=== PATIENT | female | born 1955 | race Caucasian/White ===

== ENCOUNTER 2016-06-13 11:30 | Outpatient (CLI) | payer MEDICAID | END 2016-06-13 11:31 | disposition home or self-care (01) | DX: R53.83 Other fatigue (principal) ==

== ENCOUNTER 2016-08-08 14:30 | Outpatient (CLI) | payer MEDICAID | END 2016-08-08 23:59 | DX: E03.9 Hypothyroidism, unspecified (principal); R53.83 Other fatigue; Z51.81 Encounter for therapeutic drug level monitoring ==

== ENCOUNTER 2016-09-08 15:55 | Emergency (ER) | payer MEDICAID ==
[2016-09-08] MEDS ORDERED: LIDOCAINE 1% 2 ML VIAL ONE (17:09)
[2016-09-08] MEDS ORDERED: AMOX/CLAV 875 MG/125 MG TABLET PO STA (17:23)
--- NOTE | 2016-09-08 17:25 | ED Physician Documentation ---
PD HPI ANIMAL BITE - Stated complaint Stated Complaint: RT UE DOG BITE - Chief complaint Chief Complaint: Wound - History obtained from History obtained from: Patient, Family - History of Present Illness Location of injury(ies): RUE Details of the event: Dog, Bite, Pet animal, Well appearing, Immunized, Provoked (the patient was playing with the dog and the dog bit her arm going for a ball), Animal can be observed Timing - onset: Today Timing - duration: Hours Timing - details: Abrupt onset, Still present Improved by: Rest, Immobilization Worsened by: Moving, Palpating Associated symptoms: No: Weakness, Numbness, Tingling Contributing factors: Immunocompromised Similar symptoms before: Has not had sx before Recently seen: Not recently seen - Additional information Additional information: 61 y/o female on cosyntex was playing with her dog and was bit by the dog when the dog was going for a ball. Review of Systems Constitutional: denies: Fever Eyes: denies: Decreased vision Respiratory: denies: Cough GI: denies: Vomiting Skin: reports: Laceration (s), Bite / sting Musculoskeletal: reports: Extremity pain. denies: Neck pain, Back pain PD PAST MEDICAL HISTORY - Past Medical History Past Medical History: No Cardiovascular: High cholesterol Respiratory: None Neuro: Other Endocrine/Autoimmune: HyPOthyroidism GI: GERD, Colon polyps, Ulcerative colitis : None HEENT: None Psych: Depression, Anxiety Musculoskeletal: Osteoarthritis, Chronic back pain, Other Derm: None - Past Surgical History Past Surgical History: Yes General: Cholecystectomy Ortho: Other /STRIPPER PRELIMINARY: Hysterectomy HEENT: Tonsil/Adenoidectomy Derm: Other - Present Medications Home Medications: Ambulatory Orders Medication Instructions Recorded Confirmed Loratadine [Claritin] 10 mg PO DAILY 06/24/13 04/28/14 Temazepam 15 mg PO DAILY 06/24/13 04/28/14 predniSONE [Deltasone] 5 mg PO PRN PRN 06/24/13 04/28/14 Naproxen [Naprosyn] 500 mg PO BID PRN #30 tablet 04/28/14 Amox/Clav 875/125 [Augmentin] 1 each PO Q12H #10 tablet 09/08/16 Duloxetine HCl [Duloxetine HCl] 30 mg PO DAILY 09/08/16 09/08/16 Levothyroxine [Synthroid] 50 mcg PO DAILY 09/08/16 09/08/16 Secukinumab [Cosentyx Syringe] 150 mg INJ ONCE 09/08/16 09/08/16 Zolpidem Tartrate [Zolpidem 10 mg PO DAILY 09/08/16 09/08/16 Tartrate] predniSONE [Deltasone] 10 mg PO DAILY PRN 09/08/16 09/08/16 - Allergies Allergies/Adverse Reactions: Allergies Allergy/AdvReac Type Severity Reaction Status Date / Time Sulfa (Sulfonamide Allergy Intermediate Hives Verified 04/28/14 12:10 Antibiotics) - Social History Does the pt smoke?: No Smoking Status: Never smoker Does the pt drink ETOH?: Yes ETOH Use: Wine Does the pt have substance abuse?: No - Immunizations Immunizations are current?: Yes PD ED PE NORMAL - Vitals Vital signs reviewed: Yes (hypertensive ) - General General: No acute distress, Well developed/nourished - HEENT HEENT: Atraumatic, PERRL - Neck Neck: Supple, no meningeal sign - Derm Derm: Normal color, Warm and dry, No rash - Extremities Extremities: No deformity, No edema, Other (There is a 3cm laceration to the right volar forearm without foreign material in the wound. ) - Neuro Neuro: Alert and oriented X 3, No motor deficit, No sensory deficit, Normal speech - Psych Psych: Normal mood, Normal affect Results - Vitals Vitals: Vital Signs - 24 hr 09/08/16 15:58 Temperature 35.3 C L Heart Rate 90 Respiratory 18 Rate Blood Pressure 158/98 H O2 Saturation 97 Oxygen O2 Source Room air Procedures - Laceration (location) right forearm Length in cm: 3 Wound type: Linear, Clean Neurovascular status: Sensory intact, Motor intact, Vascular intact Anesthesia: Lidocaine 1% Wound Preparation: Hibiclens, Irrigated copiously NS, Wound explored, To the base Skin layer closure: Nylon, Size #-0 - enter number (4-0), Sutures - enter # (1) Other: Patient tolerated well, No complications, Neurovascular intact, Dressing applied, Tetanus UTD Complexity: Simple PD MEDICAL DECISION MAKING - ED course Complexity details: reviewed old records, considered differential, d/w patient ED course: 61 y/o female on cosyntx has a 3cm dog bite to the right forearm. She would like some closure and I have discussed partial closure with risk of trapped infection and we have agreed on partial closure with a single suture. Departure - Departure Disposition: 01 Home, Self Care Clinical Impression: Dog bite of extremity Condition: Stable Instructions: ED Bite Animal General Follow-Up: Dayna Dior PA-C [Provider Admit Priv/Credential] - Prescriptions: Amox/Clav 875/125 [Augmentin] 1 each PO Q12H #10 tablet Comments: Today in the Emergency Department your blood pressure was elevated. This can happen from the stress of the visit itself, from a current illness or circumstance or from uncontrolled hypertension. If you take blood pressure medications take your usual mediations, have your blood pressure re-checked in an appropriate setting and follow up any elevation with your primary care doctor.
[2016-09-08] MEDS ORDERED: AMOX/CLAV 875 MG/125 MG TABLET PO ONE (17:33)
[2016-09-08 17:55] VITALS: BP 133/93
== END 2016-09-08 17:52 | disposition home or self-care (01) ==
LOC: ED 15:55
DX: S51.811A Laceration without foreign body of right forearm, initial encounter (principal); W54.0XXA Bitten by dog, initial encounter; E78.00 Pure hypercholesterolemia, unspecified; E03.9 Hypothyroidism, unspecified; K21.9 Gastro-esophageal reflux disease without esophagitis; Z86.010 Personal history of colon polyps; Z87.19 Personal history of other diseases of the digestive system; M19.90 Unspecified osteoarthritis, unspecified site
CPT/HCPCS: 12002; 99283; A9270

== ENCOUNTER 2016-09-10 09:30 | Outpatient (CLI) | payer MEDICAID | END 2016-09-10 09:31 | disposition home or self-care (01) | LOC: LAB.R 09:30 | PROVIDERS: ATTEND Physician Assistant Medical | DX: L03.113 Cellulitis of right upper limb (principal) | CPT/HCPCS: 87070; 87205 ==

== ENCOUNTER 2016-09-12 09:54 | Outpatient (CLI) | payer MEDICAID ==
[2016-09-12 13:33] LABS: THYROID STIMULATING HORMONE 2.26 uIU/mL (0.34-5.60)
[2016-09-20 19:33] LABS: T3 REVERSE 16 ng/dL (8-25)
== END 2016-09-12 09:55 | disposition home or self-care (01) ==
LOC: LAB.WCP 09:54
PROVIDERS: ATTEND Physician Assistant Medical
DX: E03.9 Hypothyroidism, unspecified (principal)
CPT/HCPCS: 36415; 81599; 84439; 84443; 84481; 84482; 86317; 86704; 86803; 87340

== ENCOUNTER 2016-11-06 08:00 | Outpatient (CLI) | payer MEDICAID ==
[2016-11-06 12:55] LABS: ALBUMIN/GLOBULIN RATIO 1.1 (1.0-2.2); BILIRUBIN,TOTAL 0.6 mg/dL (0.2-1.0); BUN - BLOOD UREA NITROGEN 13 mg/dL (6-20); CARBON DIOXIDE - CO2 24 mmol/L (21-32); CHLORIDE 103 mmol/L (101-111); CREATININE 0.8 mg/dL (0.4-1.0); GFR - MDRD 73 (>89); GLUCOSE 97 mg/dL (70-100); POTASSIUM 3.8 mmol/L (3.5-5.0); SODIUM 137 mmol/L (135-145); TOTAL PROTEIN 7.2 g/dL (6.7-8.2)
[2016-11-06 13:11] LABS: HEMOGLOBIN A1C 0.59 g/dL
== END 2016-11-06 08:01 | disposition home or self-care (01) ==
LOC: LAB.WCP 08:00
PROVIDERS: ATTEND Family Medicine
DX: E27.8 Other specified disorders of adrenal gland (principal)
CPT/HCPCS: 36415; 80053; 83036; 84443

== ENCOUNTER 2016-12-24 11:00 | Outpatient (CLI) | payer MEDICAID | END 2016-12-24 11:01 | disposition home or self-care (01) | LOC: LAB.R 11:00 | PROVIDERS: ATTEND Physician Assistant Medical | DX: N39.0 Urinary tract infection, site not specified (principal) | CPT/HCPCS: 87086 ==

== ENCOUNTER 2017-07-01 11:18 | Outpatient (CLI) | payer MEDICAID | END 2017-07-01 11:19 | disposition EMS.NT | LOC: EMS 11:18 | PROVIDERS: ATTEND Surgery | DX: M25.561 Pain in right knee (principal); W10.9XXA Fall (on) (from) unspecified stairs and steps, initial encounter; Y92.009 Unspecified place in unspecified non-institutional (private) residence as the place of occurrence of the external cause ==

== ENCOUNTER 2017-12-30 14:55 | Outpatient (CLI) | payer MEDICAID ==
[2017-12-30 19:01] LABS: BASOPHILS # (AUTO) 0.1 10^3/uL (0.0-0.1); BASOPHILS % (AUTO) 1.5 %; EOSINOPHILS # (AUTO) 0.1 10^3/uL (0.0-0.7); EOSINOPHILS % (AUTO) 2.4 %; HGB - HEMOGLOBIN 13.2 g/dL (12.0-16.0); LYMPHOCYTES # (AUTO) 1.2 10^3/uL (1.5-3.5); LYMPHOCYTES % (AUTO) 19.9 %; MEAN CORPUSCULAR HEMOGLOBIN 28.8 pg (27.0-31.0); MEAN CORPUSCULAR HGB CONC 33.6 g/dL (32.0-36.0); MEAN CORPUSCULAR VOLUME 85.6 fL (81.0-99.0); MONOCYTES # (AUTO) 0.5 10^3/uL (0.0-1.0); MONOCYTES % (AUTO) 7.5 %; NEUTROPHILS # (AUTO) 4.2 10^3/uL (1.5-6.6); NEUTROPHILS % (AUTO) 68.7 %; PLT - PLATELET COUNT 334 10^3/uL (130-450); RED BLOOD COUNT 4.58 10^6/uL (4.20-5.40); RED CELL DISTRIBUTION WIDTH 15.1 % (12.0-15.0); WHITE BLOOD COUNT 6.1 x10^3/uL (4.8-10.8)
[2017-12-30 19:32] LABS: ALBUMIN 4.1 g/dL (3.2-5.5); ALBUMIN/GLOBULIN RATIO 1.2 (1.0-2.2); ALKALINE PHOSPHATASE 83 IU/L (42-121); ALT ALANINE AMINOTRANSFERASE 28 IU/L (10-60); AST ASPARTATE AMINOTRANSFERASE 29 IU/L (10-42); BILIRUBIN,TOTAL 0.6 mg/dL (0.2-1.0); BUN - BLOOD UREA NITROGEN 12 mg/dL (6-20); CALCIUM 9.2 mg/dL (8.5-10.3); CARBON DIOXIDE - CO2 27 mmol/L (21-32); CHLORIDE 102 mmol/L (101-111); CHOL/HDL RATIO 6.5 (<4.4); CHOLESTEROL 294 mg/dL; CREATININE 0.8 mg/dL (0.4-1.0); GFR - MDRD 73 (>89); GLUCOSE 102 mg/dL (70-100); HDL CHOLESTEROL 45 mg/dL; LDL CHOLESTEROL,CALCULATED 205 mg/dL; LDL/HDL RATIO 4.6 (<4.4); SODIUM 139 mmol/L (135-145); TOTAL PROTEIN 7.4 g/dL (6.7-8.2); VLDL CHOLESTEROL 44 mg/dL
[2017-12-30 19:33] LABS: CRP - C-REACTIVE PROTEIN < 1.0 mg/dL (0-1.0)
[2017-12-30 19:41] LABS: THYROID STIMULATING HORMONE 2.22 uIU/mL (0.34-5.60)
== END 2017-12-30 14:56 | disposition home or self-care (01) ==
LOC: LAB.WCP 14:55
PROVIDERS: ATTEND Family Medicine
DX: K76.0 Fatty (change of) liver, not elsewhere classified (principal); E78.5 Hyperlipidemia, unspecified; G31.84 Mild cognitive impairment of uncertain or unknown etiology; E03.9 Hypothyroidism, unspecified; D84.9 Immunodeficiency, unspecified
CPT/HCPCS: 36415; 80053; 80061; 82607; 83721; 84443; 85025; 86140

== ENCOUNTER 2018-03-31 13:02 | Outpatient (CLI) | payer MEDICAID ==
[2018-03-31 20:20] LABS: ALBUMIN 4.1 g/dL (3.2-5.5); ALBUMIN/GLOBULIN RATIO 1.2 (1.0-2.2); ALKALINE PHOSPHATASE 80 IU/L (42-121); ALT ALANINE AMINOTRANSFERASE 17 IU/L (10-60); AST ASPARTATE AMINOTRANSFERASE 21 IU/L (10-42); BILIRUBIN,TOTAL 0.4 mg/dL (0.2-1.0); BUN - BLOOD UREA NITROGEN 20 mg/dL (6-20); CALCIUM 9.3 mg/dL (8.5-10.3); CARBON DIOXIDE - CO2 28 mmol/L (21-32); CHLORIDE 102 mmol/L (101-111); CHOL/HDL RATIO 4.6 (<4.4); CHOLESTEROL 204 mg/dL; CREATININE 0.8 mg/dL (0.4-1.0); GFR - MDRD 73 (>89); GLUCOSE 102 mg/dL (70-100); HDL CHOLESTEROL 44 mg/dL; LDL CHOLESTEROL,CALCULATED 117 mg/dL; LDL/HDL RATIO 2.7 (<4.4); SODIUM 138 mmol/L (135-145); TOTAL PROTEIN 7.6 g/dL (6.7-8.2); VLDL CHOLESTEROL 43 mg/dL
== END 2018-03-31 23:59 | disposition home or self-care (01) ==
LOC: LAB.WCP 13:02
PROVIDERS: ATTEND Family Medicine
DX: E78.49 Other hyperlipidemia (principal)
CPT/HCPCS: 36415; 80053; 80061; 83721

== ENCOUNTER 2018-06-07 09:44 | Outpatient (CLI) | payer MEDICAID | END 2018-06-07 09:45 | disposition home or self-care (01) | LOC: SC 09:44 | PROVIDERS: ATTEND Internal Medicine Pulmonary Disease | DX: F51.04 Psychophysiologic insomnia (principal); R06.83 Snoring; R53.83 Other fatigue; E66.9 Obesity, unspecified; Z68.29 Body mass index [BMI] 29.0-29.9, adult | CPT/HCPCS: 99203; 99212 ==

== ENCOUNTER 2018-07-08 19:29 | Outpatient (CLI) | payer MEDICAID | END 2018-07-08 19:30 | disposition home or self-care (01) | LOC: SC 19:29 | PROVIDERS: ATTEND Internal Medicine Pulmonary Disease | DX: G47.61 Periodic limb movement disorder (principal) | CPT/HCPCS: 95810 ==

== ENCOUNTER 2018-08-03 13:08 | Outpatient (CLI) | payer MEDICAID | END 2018-08-03 13:09 | disposition home or self-care (01) | LOC: SC 13:08 | PROVIDERS: ATTEND Nurse Practitioner Family | DX: R06.83 Snoring (principal); G47.61 Periodic limb movement disorder | CPT/HCPCS: 99212; 99214 ==

== ENCOUNTER 2018-08-18 09:36 | Outpatient (CLI) | payer MEDICAID ==
[2018-08-18] MEDS ORDERED: GADOBUTROL 7.5 MMOL/7.5 ML VIAL ONE (10:29)
[2018-08-18] MEDS ORDERED: GADOBUTROL 7.5 MMOL/7.5 ML VIAL IVP ONE (10:30)
--- NOTE | 2018-08-18 13:27 | MRI Report ---
Reason: MENTAL CONFUSION Procedure Date: 08/18/2018 Accession Number: [id number] / [id number] Procedure: MRI - Brain W/WO CPT Code: FULL RESULT: EXAM: MRI BRAIN WITHOUT AND WITH CONTRAST EXAM DATE: 08/18/2018 10:02 AM. CLINICAL HISTORY: 63-year-old woman with mental confusion and memory changes. COMPARISON: BRAIN 12/05/2006 9:03 AM. TECHNIQUE: Multiplanar, multisequence T1-weighted and fluid-sensitive MR sequences of the brain were performed. Sequences optimized for routine evaluation. Other: None. IV Contrast: 7.5 cc Gadavist. FINDINGS: Parenchyma: No evidence of acute infarct on diffusion weighted sequence. The parenchyma demonstrate minimal burden of nonspecific FLAIR hyperintensities in the deep cerebral white matter, similar to the 2006 exam and less than commonly seen in this age group. No evidence of prior hemorrhage on susceptibility weighted sequence. No abnormal enhancement. Cerebral volume: Normal for age. Pituitary: Unremarkable. Ventricles and Extra-axial Spaces: Ventricles are symmetric and normal in size for age. Extra-axial spaces are unremarkable. No abnormal enhancement. Orbits: Unremarkable. Sinuses: Mucosal thickening is present in the left maxillary sinus. Mastoid air cells are clear. Major Vascular Flow Voids: Intact. IMPRESSION: 1. Normal brain MRI. No evidence of infarct, hemorrhage, or mass lesion. RADIA
== END 2018-08-18 09:37 | disposition home or self-care (01) ==
LOC: DI 09:36
PROVIDERS: ATTEND Family Medicine
DX: R41.0 Disorientation, unspecified (principal)
CPT/HCPCS: 70553; A9585

== ENCOUNTER 2019-02-02 11:30 | Day surgery (SDC) | payer MEDICAID ==
[2019-02-02] MEDS ORDERED: LACTATED RINGERS 1,000 ML IV ONE ×2 (12:00→13:55)
[2019-02-02] MEDS ORDERED: MIDAZOLAM 2 MG/2 ML VIAL IVP ONE (13:01)
[2019-02-02] MEDS ORDERED: fentaNYL 250 MCG/5 ML VIAL IVP ONE (13:01)
[2019-02-02] MEDS ORDERED: fentaNYL 100 MCG/2 ML VIAL IVP ONE (13:01)
[2019-02-02] MEDS ORDERED: PROPOFOL 200 MG/20 ML VIAL IVP ONE (13:40)
[2019-02-02] MEDS ORDERED: LIDOCAINE-MPF 2% 5 ML VIAL IM ONE (13:40)
[2019-02-02 14:23] VITALS: BP 133/86
== END 2019-02-02 11:31 | disposition home or self-care (01) ==
LOC: SDS 11:30
PROVIDERS: ATTEND Surgery
PROC: 0DBL8ZZ Excision of Transverse Colon, Via Natural or Artificial Opening Endoscopic (ICD-10-PCS; principal; 2019-02-02 13:00)
DX: Z12.11 Encounter for screening for malignant neoplasm of colon (principal); D12.3 Benign neoplasm of transverse colon; K64.8 Other hemorrhoids; M79.7 Fibromyalgia; L40.50 Arthropathic psoriasis, unspecified; E89.0 Postprocedural hypothyroidism; K76.0 Fatty (change of) liver, not elsewhere classified; R35.0 Frequency of micturition; R35.1 Nocturia; E27.8 Other specified disorders of adrenal gland; R53.83 Other fatigue; F41.8 Other specified anxiety disorders; M54.10 Radiculopathy, site unspecified; M51.36 Other intervertebral disc degeneration, lumbar region; H10.10 Acute atopic conjunctivitis, unspecified eye; G47.00 Insomnia, unspecified; Z79.51 Long term (current) use of inhaled steroids
CPT/HCPCS: 45380; J7120

== ENCOUNTER 2020-11-18 14:39 | Emergency (ER) | payer MEDICARE, OTHER ==
[2020-11-18] MEDS: HYDROmorphone 1 MG/ML CARPUJECT IM STA ×2 (15:12→15:34)
--- NOTE | 2020-11-18 15:13 | ED Physician Documentation ---
History of Present Illness - Stated complaint Stated Complaint: GLF/DIFFICULTY BREATHING - Chief complaint Chief Complaint: Trauma Ch/Bk - History obtained from History obtained from: Patient - History of Present Illness Timing: How many hours ago (1) Pain level max: 10 Pain level now: 10 - Additonal information Additional information: Patient is a 65-year-old female who presents to the emergency department after a fall off of a deck onto the ground today. She complains of a headache, mild neck pain, left-sided anterior chest wall pain and right ankle pain. Worse with movement, better with rest. Describes the pain as 10 out of 10. Has not taken anything for the pain. No loss of consciousness. No vomiting. Has not taken anything for pain. Review of Systems Constitutional: denies: Fever, Chills GI: denies: Vomiting, Diarrhea Skin: denies: Rash Musculoskeletal: denies: Neck pain, Back pain Neurologic: denies: Headache PD PAST MEDICAL HISTORY - Past Medical History Cardiovascular: High cholesterol Respiratory: None Endocrine/Autoimmune: HyPOthyroidism GI: GERD, Colon polyps, Ulcerative colitis : None HEENT: None Psych: Depression, Anxiety, Claustrophobia Musculoskeletal: Osteoarthritis, Chronic back pain, Other Derm: None - Past Surgical History Past Surgical History: Yes General: Appendectomy Ortho: Other /[employer]ESSIONAL: Hysterectomy HEENT: Tonsil/Adenoidectomy Derm: Other - Present Medications Home Medications: Ambulatory Orders Medication Instructions Recorded Confirmed Loratadine [Claritin] 10 mg PO DAILY 06/24/13 02/02/19 predniSONE [Deltasone] 5 mg PO PRN PRN 06/24/13 02/02/19 Duloxetine HCl 60 mg PO DAILY 09/08/16 02/02/19 Levothyroxine [Synthroid] 50 mcg PO DAILY 09/08/16 02/02/19 Zolpidem Tartrate 10 mg PO DAILY 09/08/16 02/02/19 buPROPion HCL [Bupropion HCl Sr] 300 mg PO DAILY 02/01/19 02/02/19 Secukinumab [Cosentyx (2 Syringes)] 2 02/02/19 Oxycodone HCl/Acetaminophen 1 - 2 each PO Q6H PRN #14 tablet 11/18/20 [Percocet 5-325 mg Tablet] Promethazine [Phenergan] 25 mg PO Q6H PRN #10 tab 11/18/20 - Allergies Allergies/Adverse Reactions: Allergies Allergy/AdvReac Type Severity Reaction Status Date / Time Sulfa (Sulfonamide Allergy Intermediate Hives Verified 11/18/20 14:48 Antibiotics) adhesive Allergy Rash Verified 11/18/20 14:48 - Social History Does the pt smoke?: No Smoking Status: Never smoker Does the pt drink ETOH?: Yes Does the pt have substance abuse?: No - Immunizations Immunizations are current?: Yes PD ED PE NORMAL - Vitals Vital signs reviewed: Yes - General General: Alert and oriented X 3, No acute distress - HEENT HEENT: Atraumatic, PERRL, Ears normal, Moist mucous membranes, Pharynx benign, Other (No hematomas. No abrasions. No lacerations. Mild tenderness over the anterior aspect of the scalp.) - Neck Neck: Supple, no meningeal sign, Other (Mild tenderness to palpation along the upper C-spine. No step-off or deformity.) - Cardiac Cardiac: RRR, Strong equal pulses - Respiratory Respiratory: No respiratory distress, Clear bilaterally - Abdomen Abdomen: Soft, Non tender, Non distended - Derm Derm: Warm and dry - Neuro Neuro: Alert and oriented X 3 - Psych Psych: Normal mood, Normal affect Results - Vitals Vitals: Vital Signs - 24 hr 11/18/20 14:43 Temperature 36.9 C Heart Rate 88 Respiratory 20 Rate Blood Pressure 131/92 H O2 Saturation 99 Oxygen O2 Source Room air - Rads (name of study) head CT Radiology: Final report received, EMP read contemporaneously, See rad report (No acute abnormality) cervical spine ct Radiology: Final report received, EMP read contemporaneously, See rad report (No acute abnormality) chest CT Radiology: Final report received, EMP read contemporaneously, See rad report (No acute abnormality) R ankle xray Radiology: Final report received, EMP read contemporaneously, See rad report (No acute abnormality) PD MEDICAL DECISION MAKING - ED course Complexity details: reviewed results, re-evaluated patient, considered differential, d/w patient, d/w family ED course: No acute findings on CT scans or x-rays. No fractures. No bleeding. No lacerations. Pain well controlled. Placed on ankle splint for comfort. We will place on pain medication for home as well. Crutches not used as the patien t did not feel she could utilize them. She states that she does not want any assistive walking devices at this time. Patient and family counseled regarding signs and symptoms for which I believe and urgent re-evaluation would be necessary. Patient with good understanding of and agreement to plan and is comfortable going home at this time This document was made in part using voice recognition software. While efforts are made to proofread this document, sound alike and grammatical errors may occur. I am prescribing a short course of short-acting opioid pain medication for this patient. I have reviewed the patients DIRECTOR EXPORT and no concerning findings were noted. I have discussed that the opioids are for short term therapy only, and will not be refilled from the ED. Departure - Departure Disposition: 01 Home, Self Care Clinical Impression: Contusion of chest wall Qualifiers: Encounter type: initial encounter Laterality: left Qualified Code(s): S20.212A - Contusion of left front wall of thorax, initial encounter Right ankle sprain Qualifiers: Encounter type: initial encounter Involved ligament of ankle: unspecified ligament Qualified Code(s): S93.401A - Sprain of unspecified ligament of right ankle, initial encounter Closed head injury Qualifiers: Encounter type: initial encounter Qualified Code(s): S09.90XA - Unspecified injury of head, initial encounter Condition: Good Instructions: ED Sprain Ankle W X Ray, ED Contusion Chest Wall, ED Head Injury Closed Follow-Up: Guy Jackson DO [Primary Care Provider] - Within 1 week Prescriptions: Oxycodone HCl/Acetaminophen [Percocet 5-325 mg Tablet] 1 - 2 each PO Q6H PRN #14 tablet PRN Reason: pain Promethazine [Phenergan] 25 mg PO Q6H PRN #10 tab PRN Reason: Nausea / Vomiting Comments: Follow-up with your doctor as needed for further care. Return if you worsen. Your x-rays do not show any acute abnormalities. You may bear weight as tolerated. Wear the splint as needed for comfort. I am prescribing a short course of narcotic pain medication for you. These are potentially dangerous and addictive medications that should be used carefully. These medications may constipate you. Take an duuo-akl-pwsbrju stool softener (docusate) twice daily with plenty of water while taking these medications. If you go 24 hours without a bowel movement, take ddow-ldx-kujtxum miralax, per package instructions. Do not drink or drive while taking these medications. If you received narcotic or sedating medications while in the emergency department, do not drive for 24 hours. Store this medication in a safe, secure place and out of reach of children. It is a violation of federal law to give or sell this medication to another person or to use in a manner other than prescribed. The ED will not refill narcotic prescriptions, including prescriptions lost or stolen. To dispose of unwanted medications: 1. [facility] [address] in [place] has a medication drop box. They accept prescription medications (in pill form) Thursday through Thursday 9:00 a.m. to 5:00 p.m. 2. The [facility] [employer] accepts prescription medications (in pill form only) for disposal year round. Call for more information. 3. Contact the [facility] for the next [facility] sponsored prescription drug collection event. , [phone], or [phone];
--- NOTE | 2020-11-18 15:36 | XRAY Report ---
PROCEDURE: Ankle 3 View RT INDICATIONS: fall, R ankle pain TECHNIQUE: 3 views of the ankle were acquired. COMPARISON: None FINDINGS: Bones: No fractures or dislocations. Ankle mortise is normally aligned. No suspicious bony lesions . The talar dome demonstrates an unremarkable appearance. A plantar calcaneal spur is incidentall y noted. Soft tissues: No tibiotalar joint effusion. Achilles tendon appears normal. IMPRESSION: No displaced fractures are seen on this plain study. In this patient with a given history of trauma, please correlate with focal tenderness. If clinically appropriate, please consider a short-term follow-up plain films series versus a dedicated CT study. Reviewed by: Chester Tenorio MD on 11/18/2020 2:34 PM [place] Approved by: Chester Tenorio MD on 11/18/2020 2:34 PM [place] Station ID: [id number]
--- NOTE | 2020-11-18 15:55 | CT Report ---
PROCEDURE: HEAD WO INDICATIONS: fall, headache TECHNIQUE: Noncontrast 4.5 mm thick angled axial sections acquired from the foramen magnum to the vertex. For r adiation dose reduction, the following was used: automated exposure control, adjustment of mA and/or kV according to patient size. COMPARISON: Correlation is made with the accompanying CT examinations. FINDINGS: Image quality: Excellent. CSF spaces: Basal cisterns are patent. No extra-axial fluid collections. Ventricles are normal in size and shape. Brain: No midline shift. No intracranial masses or hemorrhage. Ray-white matter interface is norm al. Skull and face: Calvarium and visualized facial bones are intact, without suspicious lesions. Sinuses: Areas of mild to moderate mucosal thickening can be seen within the maxillary sinuses. The paranasal sinuses otherwise appear clear. Moderate leftward nasal septal deviation is incidentally no vel. No significant abnormal fluid can be seen within the mastoid air cells or within the middle ear cavities. IMPRESSION: No intracranial hemorrhage is seen. No significant intracranial abnormality is seen. Reviewed by: Chester Tenorio MD on 11/18/2020 2:53 PM [place] Approved by: Chester Tenorio MD on 11/18/2020 2:53 PM [place] Station ID: [id number]
--- NOTE | 2020-11-18 15:56 | CT Report ---
PROCEDURE: CERVICAL SPINE WO INDICATIONS: fall, neck pain TECHNIQUE: Noncontrast 3 mm thick sections acquired from the skull base to the T4 level. Sagittal and coronal r eformats were then constructed. For radiation dose reduction, the following was used: automated exp osure control, adjustment of mA and/or kV according to patient size. COMPARISON: Correlation is made with the accompanying CT examinations, a 21. FINDINGS: Image quality: This study is limited by quantum mottle artifact. Bones: No fractures or dislocations. Visualized superior ribs are intact. Degenerative changes are seen, with moderate disc space narrowing at C3-C4, with at least moderate di sc space narrowing at C5-C6. Bridging anterior osteophytes are seen, which are worst at C5-C6. There is minimal anterolisthesis at C4-C5 and minimal retrolisthesis at C5-C6. Milder degenerative changes are seen elsewhere. Soft tissues: Prevertebral soft tissues are normal in thickness. No paravertebral hematomas. No ap ical pneumothoraces. IMPRESSION: Negative for fracture. Degenerative changes are seen, which are worst at the C5-C6 level. Reviewed by: Chester Tenorio MD on 11/18/2020 2:55 PM [place] Approved by: Chester Tenorio MD on 11/18/2020 2:55 PM [place] Station ID: [id number]
--- NOTE | 2020-11-18 15:59 | CT Report ---
PROCEDURE: CHEST WO INDICATIONS: fall, R chest pain TECHNIQUE: Noncontrast images were acquired from the pulmonary apices to the posterior costophrenic angles. Mul tiplanar MIP reformats were then acquired. For radiation dose reduction, the following was used: au tomated exposure control, adjustment of mA and/or kV according to patient size. COMPARISON: Correlation is made with the accompanying CT examinations, 11/18/2020. FINDINGS: Image quality: Excellent. Lungs and pleura: No acute air space opacities. No pleural effusions or pneumothorax. Central and peripheral airways are patent and normal in caliber. Mediastinum: Heart size is normal. No pericardial effusion. No mediastinal adenopathy by size crit eria. Thoracic aorta and central pulmonary arteries are normal in size. Incidental note is made of a common trunk off of the aorta of the right brachiocephalic artery and the left common carotid artery (bovine type aortic arch). This is considered to be a developmental variant of typically no clinical consequence. Esophagus is normal in caliber. No hiatal hernia. Bones and chest wall: In this patient with this given history, scrutiny is given to the right ribs. No displaced right rib fractures can be seen. No significant right chest wall hematomas can be seen. No suspicious bony lesions. Degenerative changes are seen, particularly involving the right shoulder. No vertebral body compression fractures. No axillary or supraclavicular adenopathy by size criteri a. Only the left thyroid lobe can be seen. Abdomen: Diffuse fatty liver infiltration can be seen. Visualized upper abdominal solid organs and bowel loops appear normal in the absence of contrast. IMPRESSION: No displaced rib fractures are seen. No significant chest wall hematomas can be seen. No pneumothorax is seen. Incidental note is made of: Presumed right hemithyroidectomy Focal right shoulder degenerative change Bovine type aortic branching pattern Fatty liver infiltration Reviewed by: Chester Tenorio MD on 11/18/2020 2:58 PM [place] Approved by: Chester Tenorio MD on 11/18/2020 2:58 PM [place] Station ID: [id number]
[2020-11-18 17:02] VITALS: BP 129/85
== END 2020-11-18 17:02 | disposition home or self-care (01) ==
LOC: ED 14:39
DX: S20.212A Contusion of left front wall of thorax, initial encounter (principal); S93.401A Sprain of unspecified ligament of right ankle, initial encounter; S09.90XA Unspecified injury of head, initial encounter; W17.89XA Other fall from one level to another, initial encounter; Y92.008 Other place in unspecified non-institutional (private) residence as the place of occurrence of the external cause
CPT/HCPCS: 70450; 71250; 72125; 73610; 96372; 99284; J1170

== ENCOUNTER 2021-11-06 13:07 | Outpatient (CLI) | payer MEDICARE, OTHER | END 2021-11-06 13:08 | disposition home or self-care (01) | LOC: RT 13:07 | PROVIDERS: ATTEND Physician Assistant | DX: R06.02 Shortness of breath (principal) | CPT/HCPCS: 94010; 94729 ==

== ENCOUNTER 2022-04-08 09:55 | Outpatient (CLI) | payer MEDICARE, OTHER ==
[2022-04-08 10:11] LABS: BASOPHILS # (AUTO) 0.1 10^3/uL (0.0-0.1); BASOPHILS % (AUTO) 1.1 %; EOSINOPHILS # (AUTO) 0.2 10^3/uL (0.0-0.7); EOSINOPHILS % (AUTO) 2.3 %; HCT - HEMATOCRIT 42.6 % (37.0-47.0); HGB - HEMOGLOBIN 13.7 g/dL (12.0-16.0); LYMPHOCYTES % (AUTO) 21.6 %; MEAN CORPUSCULAR HEMOGLOBIN 28.2 pg (27.0-31.0); MEAN CORPUSCULAR HGB CONC 32.2 g/dL (32.0-36.0); MEAN CORPUSCULAR VOLUME 87.7 fL (81.0-99.0); MEAN PLATELET VOLUME 8.6 fL (7.9-10.8); MONOCYTES # (AUTO) 0.7 10^3/uL (0.0-1.0); NEUTROPHILS # (AUTO) 6.4 10^3/uL (1.5-6.6); NEUTROPHILS % (AUTO) 67.8 %; PLT - PLATELET COUNT 399 10^3/uL (130-450); RED BLOOD COUNT 4.86 10^6/uL (4.20-5.40); RED CELL DISTRIBUTION WIDTH 12.7 % (12.0-15.0); WHITE BLOOD COUNT 9.4 x10^3/uL (4.8-10.8)
[2022-04-08 10:32] LABS: ALBUMIN 3.8 g/dL (3.2-5.5); ALBUMIN/GLOBULIN RATIO 0.9 (1.0-2.2); ALKALINE PHOSPHATASE 59 IU/L (42-121); ALT ALANINE AMINOTRANSFERASE 12 IU/L (10-60); AST ASPARTATE AMINOTRANSFERASE 15 IU/L (10-42); BILIRUBIN,TOTAL 0.8 mg/dL (0.2-1.0); BUN - BLOOD UREA NITROGEN 12 mg/dL (6-20); CALCIUM 9.3 mg/dL (8.5-10.3); CARBON DIOXIDE - CO2 28 mmol/L (21-32); CHLORIDE 100 mmol/L (101-111); CHOL/HDL RATIO 4.1 (<4.4); CHOLESTEROL 153 mg/dL; CREATININE 0.9 mg/dL (0.4-1.0); GFR - MDRD 63 (>89); GLUCOSE 103 mg/dL (70-100); HDL CHOLESTEROL 37 mg/dL; LDL CHOLESTEROL,CALCULATED 94 mg/dL; LDL/HDL RATIO 2.5 (<4.4); POTASSIUM 3.4 mmol/L (3.5-5.0); SODIUM 139 mmol/L (135-145); TOTAL PROTEIN 8.1 g/dL (6.7-8.2); TRIGLYCERIDES 111 mg/dL; VLDL CHOLESTEROL 22 mg/dL
[2022-04-08 10:46] LABS: THYROID STIMULATING HORMONE 1.24 uIU/mL (0.34-5.60)
[2022-04-08 10:48] LABS: FREE T3 2.71 pg/mL (2.5-3.9); FREE T4 (FREE THYROXINE) 0.99 ng/dL (0.58-1.64)
[2022-04-08 13:23] LABS: ESTIMATED AVERAGE GLUCOSE 123 mg/dL (70-100); HEMOGLOBIN A1c% 5.9 % (4.27-6.07)
== END 2022-04-08 09:56 | disposition home or self-care (01) ==
LOC: LAB 09:55
PROVIDERS: ATTEND Physician Assistant
DX: Z01.812 Encounter for preprocedural laboratory examination (principal); E78.49 Other hyperlipidemia; R73.01 Impaired fasting glucose; R53.83 Other fatigue; E03.9 Hypothyroidism, unspecified
CPT/HCPCS: 36415; 80053; 80061; 82607; 83036; 83721; 84439; 84443; 84481; 85025

== ENCOUNTER 2022-04-09 12:27 | Outpatient (CLI) | payer MEDICARE, OTHER ==
[2022-04-09] MEDS ORDERED: iohexoL-300 100 ML VIAL ONE (12:34)
--- NOTE | 2022-04-09 17:11 | CT Report ---
PROCEDURE: SOFT TISSUE NECK W INDICATIONS: CERVICAL LYMPHADENOPATHY CONTRAST: 100ml OMnipaque 300 TECHNIQUE: After the administration of intravenous contrast, 3.0 mm axial sections acquired from the sella to th e aortic arch. Additional oblique axial 3.0 mm sections acquired through the pharynx. 3 mm thick co cira reformats were generated. For radiation dose reduction, the following was used: automated exp osure control, adjustment of mA and/or kV according to patient size. COMPARISON: Correlation is made with prior cervical CT, 11/18/2020. FINDINGS: Image quality: Excellent. Lymph nodes: Scattered borderline prominent lymph nodes are seen. No enlarged lymph nodes seen throu ghout the neck. Vessels: Visualized vasculature appears patent. Incidental note is made of a common trunk off of th e aorta of the right brachiocephalic artery and the left common carotid artery (bovine type aortic ar ch). This is considered to be a developmental variant of typically no clinical consequence. Neck spaces: The oropharynx, nasopharynx, and pharynx demonstrate no mucosal lesions. The vocal cor ds, false vocal cords, pyriform sinuses, epiglottis, vallecula, and tongue base all appear normal. E xtramucosal spaces appear unremarkable. Glands: A marker is placed at the area of clinical concern, overlying the posterior aspect of the ri ght parotid gland. The parotid glands demonstrate a normal, symmetric appearance, with no masses seen . No abnormal enhancement. The parotid glands are relatively fatty replaced. The submandibular glands appear normal. Prior left hemithyroidectomy change can be seen. Miscellaneous: Visualized brain and orbits appear normal. Lung apices appear clear. Superficial so ft tissues appear normal. Bones: No suspicious bony lesions. Moderate lower cervical spine degenerative changes are seen. Ther e is complete opacification of the right maxillary sinus, with medial bowing of the right maxillary s inus. Mild mucosal thickening is seen involving the right ethmoid air cells. The paranasal sinuses ar e otherwise unremarkable. There is a cystic lesion seen involving right maxillary tooth root, as on s eries 5 image 21 and on series 6 image 75. IMPRESSION: Scattered borderline prominent lymph nodes are seen, without enlarged lymph nodes identified. The area of clinical concern corresponds to a normal-appearing right parotid gland. Additional findings: Focal right maxillary sinus disease, with a chronic appearance Cystic lesion involving right maxillary tooth roots. Moderate lower cervical spine degenerative change Prior right hemithyroidectomy Bovine type aortic branching pattern. Reviewed by: Chester Tenorio MD on 04/09/2022 4:09 PM [place] Approved by: Chester Tenorio MD on 04/09/2022 4:09 PM [facility] Station ID: [id number]
== END 2022-04-09 12:28 | disposition home or self-care (01) ==
LOC: DI 12:27
PROVIDERS: ATTEND Physician Assistant
DX: R59.0 Localized enlarged lymph nodes (principal); Z01.812 Encounter for preprocedural laboratory examination
CPT/HCPCS: 70491; Q9967

== ENCOUNTER 2022-05-23 16:33 | Emergency (ER) | payer MEDICARE, OTHER ==
--- NOTE | 2022-05-23 17:25 | XRAY Report ---
PROCEDURE: Chest 1 View X-Ray INDICATIONS: Chest Pain, +covid TECHNIQUE: One view of the chest was acquired. COMPARISON: The chest dated 11/18/2020. FINDINGS: Surgical changes and devices: None. Lungs and pleura: No pleural effusions or pneumothorax. Lungs are clear. Mediastinum: Mediastinal contours appear normal. Heart size is normal. Bones and chest wall: No suspicious bony lesions. Overlying soft tissues appear unremarkable. IMPRESSION: No acute cardiopulmonary pathology. Reviewed by: Andres Reed MD on 05/23/2022 5:24 PM PST Approved by: Andres Reed MD on 05/23/2022 5:24 PM PST Station ID: [id number]
[2022-05-23 17:34] LABS: BASOPHILS % (AUTO) 0.4 %; EOSINOPHILS # (AUTO) 0.1 10^3/uL (0.0-0.7); EOSINOPHILS % (AUTO) 0.6 %; HCT - HEMATOCRIT 49.6 % (37.0-47.0); HGB - HEMOGLOBIN 15.9 g/dL (12.0-16.0); LYMPHOCYTES # (AUTO) 0.6 10^3/uL (1.5-3.5); LYMPHOCYTES % (AUTO) 6.7 %; MEAN CORPUSCULAR HEMOGLOBIN 27.7 pg (27.0-31.0); MEAN CORPUSCULAR HGB CONC 32.1 g/dL (32.0-36.0); MEAN CORPUSCULAR VOLUME 86.6 fL (81.0-99.0); MEAN PLATELET VOLUME 8.9 fL (7.9-10.8); MONOCYTES # (AUTO) 0.4 10^3/uL (0.0-1.0); MONOCYTES % (AUTO) 3.8 %; NEUTROPHILS # (AUTO) 8.3 10^3/uL (1.5-6.6); NEUTROPHILS % (AUTO) 87.8 %; PLT - PLATELET COUNT 209 10^3/uL (130-450); RED BLOOD COUNT 5.73 10^6/uL (4.20-5.40); RED CELL DISTRIBUTION WIDTH 15.6 % (12.0-15.0); WHITE BLOOD COUNT 9.5 x10^3/uL (4.8-10.8)
[2022-05-23] MEDS ORDERED: PROMETHAZINE INJ 25 MG in SODIUM CHLORIDE 0.9% 50 ML IV STA (17:42)
[2022-05-23] MEDS ORDERED: SODIUM CHLORIDE 0.9% 1,000 ML IV STA (17:42)
[2022-05-23] MEDS ORDERED: ACETAMINOPHEN 325 MG TABLET PO STA (17:43)
--- NOTE | 2022-05-23 17:45 | ED Physician Documentation ---
History of Present Illness - Stated complaint Stated Complaint: C+,V/D/F/N - Chief complaint Chief Complaint: Cardiac - History obtained from History obtained from: Patient - History of Present Illness Timing: Today Pain level max: 5 Pain level now: 4 - Additonal information Additional information: Patient is a 67-year-old female who presents to the emergency department with cough, body aches. Starting today. Nausea and vomiting today as well. Has not taken anything for this. Tested positive for COVID. Came here for evaluation. She has had her COVID vaccinations as well as boosters. She is not currently on any medications at home. She had been on prednisone for giant cell arteritis but was told to stop this by her doctor. No difficulty breathing. Review of Systems Constitutional: reports: Fever, Chills Respiratory: denies: Cough GI: denies: Nausea, Vomiting, Diarrhea Skin: denies: Rash Musculoskeletal: denies: Neck pain, Back pain Neurologic: denies: Headache PD PAST MEDICAL HISTORY - Past Medical History Cardiovascular: High cholesterol Respiratory: None Endocrine/Autoimmune: HyPOthyroidism GI: GERD, Colon polyps, Ulcerative colitis : None HEENT: None Psych: Depression, Anxiety, Claustrophobia Musculoskeletal: Osteoarthritis, Chronic back pain, Other Derm: None - Past Surgical History Past Surgical History: Yes General: Appendectomy Ortho: Other /HATCH BOSS: Hysterectomy HEENT: Tonsil/Adenoidectomy Derm: Other - Present Medications Home Medications: Ambulatory Orders Medication Instructions Recorded Confirmed Loratadine [Claritin] 10 mg PO DAILY 06/24/13 02/02/19 predniSONE [Deltasone] 5 mg PO PRN PRN 06/24/13 02/02/19 Duloxetine HCl 60 mg PO DAILY 09/08/16 02/02/19 Levothyroxine [Synthroid] 50 mcg PO DAILY 09/08/16 02/02/19 Zolpidem Tartrate 10 mg PO DAILY 09/08/16 02/02/19 buPROPion HCL [Bupropion HCl Sr] 300 mg PO DAILY 02/01/19 02/02/19 Secukinumab [Cosentyx (2 Syringes)] 2 02/02/19 Oxycodone HCl/Acetaminophen 1 - 2 each PO Q6H PRN #14 tablet 11/18/20 [Percocet 5-325 mg Tablet] Promethazine [Phenergan] 25 mg PO Q6H PRN #10 tab 11/18/20 Promethazine [Phenergan] 25 mg PO Q6H PRN #10 tab 05/23/22 - Allergies Allergies/Adverse Reactions: Allergies Allergy/AdvReac Type Severity Reaction Status Date / Time Sulfa (Sulfonamide Allergy Intermediate Hives Verified 05/23/22 16:49 Antibiotics) adhesive Allergy Rash Verified 05/23/22 16:49 - Social History Does the pt smoke?: No Smoking Status: Never smoker Does the pt drink ETOH?: Yes Does the pt have substance abuse?: No - Immunizations Immunizations are current?: Yes PD ED PE NORMAL - Vitals Vital signs reviewed: Yes - General General: Alert and oriented X 3 - HEENT HEENT: Moist mucous membranes - Neck Neck: Supple, no meningeal sign - Cardiac Cardiac: RRR, Strong equal pulses - Respiratory Respiratory: No respiratory distress, Clear bilaterally - Abdomen Abdomen: Soft, Non tender, Non distended - Derm Derm: Warm and dry - Extremities Extremities: No edema, No calf tenderness / cord - Neuro Neuro: Alert and oriented X 3 Results - Vitals Vitals: Vital Signs - 24 hr 05/23/22 05/23/22 05/23/22 16:44 17:37 18:30 Temperature 36.9 C Heart Rate 113 H 81 100 Respiratory 18 16 18 Rate Blood Pressure 130/93 H 96/83 H O2 Saturation 99 96 100 Oxygen O2 Source Room air - EKG (time done) 1654 Rate: Rate (enter#) (106) Rhythm: NSR [place]: Normal Intervals: Normal [place] QRS: Normal Ischemia: Normal ST segments - Labs Labs: Laboratory Tests 05/23/22 05/23/22 05/23/22 17:30 17:30 17:30 WBC 9.5 RBC 5.73 H Hgb 15.9 Hct 49.6 H MCV 86.6 MCH 27.7 MCHC 32.1 RDW 15.6 H Plt Count 209 MPV 8.9 Neut # (Auto) 8.3 H Lymph # (Auto) 0.6 L [place] # (Auto) 0.4 Eos # (Auto) 0.1 Baso # (Auto) 0.0 Absolute Nucleated RBC 0.00 Nucleated RBC % 0.0 Sodium 135 Potassium 3.6 Chloride 99 L Carbon Dioxide 20 L Anion Gap 16.0 H BUN 23 H Creatinine 0.8 Estimated GFR (MDRD) 72 L Glucose 146 H Calcium 9.0 Total Bilirubin 1.7 H AST 21 ALT 26 Alkaline Phosphatase 53 Troponin I High Sens 5.6 Total Protein 7.1 Albumin 4.1 Globulin 3.0 Albumin/Globulin Ratio 1.4 Lipase 28 - Rads (name of study) cxr Radiology: Final report received, See rad report PD Medical Decision Making - ED course Complexity details: reviewed results, re-evaluated patient, considered differential, d/w patient, d/w family ED course: 67-year-old female presents to the emergency department after testing positive for COVID today. Has had nausea, vomiting and coughing. She was given IV fluids and Phenergan. Feels much better. Tolerating p.o. without difficulty. Well-appearing, nontoxic. Afebrile. No hypoxia. No respiratory distress. She is off of all medications currently. Therefore we will start her on Paxlovid. She has had her COVID vaccinations as well. Patient counseled regarding signs and symptoms for which I believe and urgent re-evaluation would be necessary. Patient with good understanding of and agreement to plan and is comfortable going home at this time This document was made in part using voice recognition software. While efforts are made to proofread this document, sound alike and grammatical errors may occur. No significant findings on CBC or chemistry other than an elevated BUN to creatinine ratio consistent with dehydration. Mildly elevated bilirubin as well. Departure - Departure Disposition: 01 Home, Self Care Clinical Impression: COVID-19 Vomiting Qualifiers: Vomiting type: unspecified Nausea presence: with nausea Qualified Code(s): R11.2 - Nausea with vomiting, unspecified Condition: Good Instructions: ED Viral Syndrome, ED Nausea Vomiting Follow-Up: Ailin Junior PA [Primary Care Provider] - As Needed Prescriptions: Promethazine [Phenergan] 25 mg PO Q6H PRN #10 tab PRN Reason: Nausea / Vomiting Comments: Please take the Paxlovid as prescribed. We have sent Phenergan to the pharmacy for you for your nausea and vomiting as well. Drink plenty of fluids and rest. Return if you worsen. Your prescription was sent to [facility] in [place]. Discharge Date/Time: 05/23/22 19:16
[2022-05-23 17:52] LABS: ALBUMIN 4.1 g/dL (3.2-5.5); ALBUMIN/GLOBULIN RATIO 1.4 (1.0-2.2); BILIRUBIN,TOTAL 1.7 mg/dL (0.2-1.0); CREATININE 0.8 mg/dL (0.4-1.0); POTASSIUM 3.6 mmol/L (3.5-5.0); TOTAL PROTEIN 7.1 g/dL (6.7-8.2)
[2022-05-23] MEDS ORDERED: NIRMATRELVIR/RITONAVIR PREPACK PO STA (18:23)
[2022-05-23 18:57] VITALS: BP 96/83
== END 2022-05-23 19:16 | disposition home or self-care (01) ==
LOC: ED 16:33
DX: U07.1 COVID-19 (principal)
CPT/HCPCS: 36415; 71045; 80053; 83690; 84484; 85025; 93005; 96365; 99284; A9270; J3490; J7040

== ENCOUNTER 2022-06-09 11:03 | Outpatient (CLI) | payer MEDICARE ==
--- NOTE | 2022-06-10 10:53 | Mammography Report ---
BILATERAL DIGITAL SCREENING MAMMOGRAM 3D/2D: 06/09/2022 CLINICAL: Routine screening. Comparison is made to exams dated: 10/10/2020 mammogram, 12/03/2017 mammogram - [facility], 6 mammogram, 06/28/2014 mammogram, and 06/09/2013 mammogram - [facility]. Both breasts are heterogeneously dense, which may obscure small masses (category c / 51-75% glandular tissue). No significant masses, calcifications, or other findings are seen in either breast. There has been no significant interval change. IMPRESSION: NEGATIVE There is no mammographic evidence of malignancy. A 1 year screening mammogram is recommended. Based on the Tyrer Cuzick model (a risk assessment model) the patients lifetime risk is 4.6% and her 10 year risk is 2.5%. According to the ACR, ACS, and NCCN guidelines, an annual breast MRI exam hakan g with mammogram is recommended if the patients lifetime risk is 20% or greater. This exam was interpreted at Station ID: [id number]. NOTE: For mammograms, a report in lay terms will be sent to the patient. Approximately 15% of breast malignancies will not be visualized mammographically. In the management of a palpable breast mass, a negative mammogram must not discourage biopsy of a clinically suspicious lesion. Electronically Signed By: Von seay/mitchell:06/09/2022 11:58:00 [facility] to: [facility] No_Letter ACR BI-RADS Category 1: Negative [id number] PARENCHYMAL PATTERN: (D) - The breast(s) demonstrate(s) heterogeneously dense fibroglandular parenchy ma. BI-RADS CATEGORY: (1) - 1 RECOMMENDATION: (ANNUAL) - Recommend routine annual screening mammography. [id number] 1 year screening LATERALITY: (B)
== END 2022-06-09 11:04 | disposition home or self-care (01) ==
LOC: DI 11:03
DX: Z12.31 Encounter for screening mammogram for malignant neoplasm of breast (principal)

== ENCOUNTER 2022-06-09 15:42 | Outpatient (CLI) | payer MEDICARE ==
--- NOTE | 2022-06-09 19:11 | XRAY Report ---
PROCEDURE: Hand 2 View LT INDICATIONS: WRIST JOINT PAIN, LEFT, HAND PAIN LEFT, KNEE PAIN TECHNIQUE: 2 views of the hand(s) acquired. COMPARISON: None FINDINGS: Bones: No fractures or dislocations. No suspicious bony lesions. First carpometacarpal joint space narrowing with marginal osteophytes and remodeling of the triquetrum. Distal interphalangeal joint s pace and narrowing with marginal ossified cysts present as well Soft tissues: No suspicious soft tissue calcifications. IMPRESSION: Osteoarthritic changes noted involving the distal interphalangeal and first carpal metacarpal joints Reviewed by: Timi Marie MD on 06/09/2022 6:10 PM [place] Approved by: Timi Marie MD on 06/09/2022 6:10 PM [facility] Station ID: [id number]
--- NOTE | 2022-06-09 19:11 | XRAY Report ---
PROCEDURE: Wrist 4 View LT INDICATIONS: WRIST JOINT PAIN, LEFT, HAND PAIN LEFT, KNEE PAIN TECHNIQUE: 4 views of the wrist were acquired. COMPARISON: None FINDINGS: Bones: No fractures or dislocations. No suspicious bony lesions. First carpometacarpal joint space narrowing, subchondral sclerosis with remodeling and fragmentation of the triquetrum Scaphoid view: No fracture Soft tissues: No suspicious soft tissue calcifications. IMPRESSION: Advanced first carpometacarpal osteoarthritis Reviewed by: Timi Marie MD on 06/09/2022 6:09 PM [facility] Approved by: Timi Marie MD on 06/09/2022 6:09 PM [facility] Station ID: [id number]
--- NOTE | 2022-06-09 19:12 | XRAY Report ---
PROCEDURE: Knee Standing BILAT INDICATIONS: WRIST JOINT PAIN, LEFT, HAND PAIN LEFT, KNEE PAIN TECHNIQUE: 3 views of both knees were obtained COMPARISON: None. FINDINGS: Bones: Bilateral knee joint prosthesis present. Evidence of hardware failure, loosening or malalignme nt. No joint effusion. Soft tissues: No knee joint effusions. No suspicious soft tissue calcification. IMPRESSION: Bilateral knee arthroplasty in good position. No hardware failure or loosening Reviewed by: Timi Marie MD on 06/09/2022 6:11 PM [facility] Approved by: Timi Marie MD on 06/09/2022 6:11 PM [place] Station ID: [id number]
== END 2022-06-09 15:43 | disposition home or self-care (01) ==
LOC: DI 15:42
PROVIDERS: ATTEND Nurse Practitioner
DX: M18.12 Unilateral primary osteoarthritis of first carpometacarpal joint, left hand (principal); M19.042 Primary osteoarthritis, left hand; Z96.653 Presence of artificial knee joint, bilateral